=== PATIENT | female | born 1965 | race Two or more races ===

== ENCOUNTER 2022-03-30 14:09 | Emergency (ER) | payer OTHER ==
[~2022-03-30] VITALS: Ht 170.2 cm; Wt 129.5 kg
[2022-03-30 14:59] VITALS: BP 139/73
--- NOTE | 2022-03-30 15:32 | RAD ---
STUDY: US DPLX VENOUS EXTREMITY LOWER RT INDICATION: Right lower extremity cellulitis. TECHNIQUE: Color-flow and pulsed wave duplex ultrasound with compression of venous structures of the right lower extremity. COMPARISON: None Available FINDINGS: Duplex ultrasound with compression of the deep venous structures of the right lower extremity from th e common femoral vein through the popliteal vein is negative for DVT. The posterior tibial and peroneal veins are segmentally visualized and patent where seen. Normal veno us waveforms and augmentation are noted throughout. IMPRESSION: No deep venous thrombosis identified throughout the right lower extremity. Electronically signed by: BAMBI CASE MD (03/30/2022 3:30 PM) [facility]
--- NOTE | 2022-03-30 15:41 | RAD ---
Right shoulder 3 views: Reason for examination: Right shoulder pain. No acute fracture or dislocation is evident. There does appear to be some widening of the acromiohume ral joint with a slight inferior subluxation of the right humeral head from the glenoid. There is candi e spurring at the AC joint and along the undersurface of the acromium. IMPRESSION: Degenerative change present at the AC joint and on the undersurface of the acromion. Slightly inferior position of the humeral head at the glenoid with some widening at the acromiohumera l joint space. Electronically signed by: Christi Aldana MD (03/30/2022 3:39 PM) [facility]
[2022-03-30] MEDS ORDERED: CLINDAMYCIN HCL 150 MG CAPSULE. PO ONE (16:15)
[2022-03-30] MEDS ORDERED: DIPHTH,PERTUSS(ACELL),TET TOX 0.5 ML DISP.SYRIN. VAX IM ONE (16:15)
--- NOTE | 2022-03-30 16:18 | PHYS DOC ---
Past Medical History Additional Past Medical Histor: diabetes Past Surgical History: Other Additional Past Surgical Histo: hernia General Adult EDM: Chief Complaint: UPPER EXTREMITY PAIN HPI: HPI: Patient is a 56 year old female with history of diabetes type 2, high cholesterol, who presents the ED today complaining of right lower extremity redness, swelling, symptoms of been going on for 2 weeks. Patient denies any trauma. Denies any fever. Patient is also complaining of 6 out of 10 right shoulder pain only on range of motion worse on raising the right shoulder, symptoms intermittently for 2 weeks. Patient describes the pain as sharp. Denies anything relieving the pain though she states she has not tried OTC medications. Denies any chest pain, shortness of breath. Review of Systems: Review of Systems: Constitutional: Denies fever or chills. [] Eyes: Denies change in visual acuity. [] HENT: Denies nasal congestion or sore throat. [] Respiratory: Denies cough or shortness of breath. [] Cardiovascular: Denies chest pain or edema. [] GI: Denies abdominal pain, nausea, vomiting, bloody stools or diarrhea. [] : Denies dysuria. [] Musculoskeletal: Reports right shoulder pain, reports right lower extremity swelling and redness Integument: Denies rash. [] Neurologic: Denies headache, focal weakness or sensory changes. [] Psychiatric: Denies depression or anxiety. [] Heart Score: C/O Chest Pain: N/A Risk Factors: Risk Factors: DM, Current or recent (<one month) smoker, HTN, HLP, family history of CAD, obesity. Risk Scores: Score 0 - 3: 2.5% MACE over next 6 weeks - Discharge Home Score 4 - 6: 20.3% MACE over next 6 weeks - Admit for Clinical Observation Score 7 - 10: 72.7% MACE over next 6 weeks - Early Invasive Strategies Current Medications: Current Medications Medications (Trade) Dose Ordered Sig/Nuria Start Time Stop Time Status Last Admin Dose Admin Clindamycin HCl (Cleocin) 450 mg 1X ONCE 03/30/22 16:15 03/30/22 16:16 UNV Diphtheria/ Tetanus/Acell Pertussis (Boostrix) 0.5 ml ONCE ONCE 03/30/22 16:15 03/30/22 16:16 UNV Physical Exam: PE: Constitutional: Well developed, well nourished, no acute distress, non-toxic ap pearance. [] HENT: Normocephalic, atraumatic, bilateral external ears normal, oropharynx moist, no oral exudates, nose normal. [] Eyes: PERRLA, EOMI, conjunctiva normal, no discharge. [] Neck: Normal range of motion, no tenderness, supple, no stridor. [] Cardiovascular:Heart rate regular rhythm, no murmur [] Lungs & Thorax: Bilateral breath sounds clear to auscultation [] Abdomen: Bowel sounds normal, soft, no tenderness, no masses, no pulsatile masses. [] Skin: Warm, dry, no erythema, no rash. [] Back: No tenderness, no CVA tenderness. [] Extremities: Right lower extremity with +1 edema, cellulitis noted mid muñoz to above the ankle. Warmth over cellulitis region. No cellulitis noted on the posterior aspect of the right lower extremity. +2 right pedal pulse. Cap refill less than 2 seconds to right lower extremity. Negative Homans' sign to the right lower extremity. Right shoulder with no obvious deformity. Full passive as well as active range of motion to the right shoulder with no pain is elicited on raising the right shoulder/upper extremity. Adequate radial, medial, ulnar sensation to the right upper extremity. +2 right radial pulse. Cap refill less than 2 seconds of right lower extremity. Neurologic: Alert and oriented X 3, normal motor function, normal sensory function, no focal deficits noted. [] Psychologic: Affect normal, judgement normal, mood normal. [] Current Patient Data: Vital Signs: Vital Signs Date Time Temp Pulse Resp B/P (MAP) Pulse Ox O2 Delivery O2 Flow Rate FiO2 03/30/22 14:59 98.3 78 18 139/73 (95) 98 98.3 EKG: EKG: [] Radiology/Procedures: Radiology/Procedures: []PROCEDURE: SHOULDER 2+V RIGHT Right shoulder 3 views: Reason for examination: Right shoulder pain. No acute fracture or dislocation is evident. There does appear to be some widening of the acromiohumeral joint with a slight inferior subluxation of the right humeral head from the glenoid. There is some spurring at the AC joint and along the undersurface of the acromium. IMPRESSION: Degenerative change present at the AC joint and on the undersurface of the acromion. Slightly inferior position of the humeral head at the glenoid with some widening at the acromiohumeral joint space. Electronically signed by: Christi Davis MD (03/30/2022 3:39 PM) [facility] DICTATED and SIGNED BY: CHRISTI DAVIS MD DATE: 03/30/22 1536 PROCEDURE: VENOUS LOWER EXTREMITY RIGHT STUDY: US DPLX VENOUS EXTREMITY LOWER RT INDICATION: Right lower extremity cellulitis. TECHNIQUE: Color-flow and pulsed wave duplex ultrasound with compression of venous structures of the right lower extremity. COMPARISON: None Available FINDINGS: Duplex ultrasound with compression of the deep venous structures of the right lower extremity from the common femoral vein through the popliteal vein is negative for DVT. The posterior tibial and peroneal veins are segmentally visualized and patent where seen. Normal venous waveforms and augmentation are noted throughout. IMPRESSION: No deep venous thrombosis identified throughout the right lower extremity. Electronically signed by: BAMBI CASE MD (03/30/2022 3:30 PM) [facility] DICTATED and SIGNED BY: BAMBI CASE MD DATE: 03/30/22 1529 Course & Med Decision Making: Course & Med Decision Making Pertinent Labs and Imaging studies reviewed. (See chart for details) This is a 56-year-old female patient presenting to the ED today with complaints of right lower extremity swelling and redness, physical exam consistent with cellulitis. Venous Doppler of the right lower extremity was done to rule out DVT, venous Doppler is negative. Discharged on clindamycin. First dose given in the ED. Tetanus updated. Patient was also complaining of right shoulder pain for 2 weeks, right shoulder x-rays interpreted by radiologist degenerative change present at the AC joint and on the undersurface of the acromion. Slightly inferior position of the humeral head at the glenoid with some widening at the acromiohumeral joint space. Sling applied to the right upper extremity by the ED RN, neurovascular exam done by the RN is normal. Ice elevation encouraged. Follow-up with Ortho in the course of this week or next week Dragon Disclaimer: Dragshane Disclaimer: This electronic medical record was generated, in whole or in part, using a voice recognition dictation system. Departure Departure Impression: Primary Impression: Cellulitis of right lower limb Additional Impressions: DJD of right shoulder Qualified Codes: M19.011 - Primary osteoarthritis, right shoulder Right shoulder pain Qualified Codes: M25.511 - Pain in right shoulder Disposition: 01 HOME / SELF CARE / HOMELESS Condition: STABLE Referrals: GIOVANA WHITTAKER II, MD Please follow-up with your primary care doctor and the provided orthopedic doctor in the next 7 Patient Instructions: Cellulitis, [id number], Shoulder Pain, [id number] Additional Instructions: You have cellulitis to the right lower extremity. Take the prescribed antibiotics until completed. Your right shoulder x-rays were noted for arthritis in your shoulder and a little bit of shoulder widening. Take the prescribed medications as ordered. Follow-up with your doctor and the provided orthopedic doctor in 1 week. Ice and elevate right shoulder Scripts Cyclobenzaprine Hcl (CYCLOBENZAPRINE HCL) 10 Mg Tablet 1 TAB PO TID, #30 TAB Prov: REECE MCGOVERN APRN 03/30/22 Naproxen (NAPROXEN) 500 Mg Tablet 1 TAB PO BID for pain, #14 TAB 0 Refills Prov: REECE MCGOVERN APRN 03/30/22 Clindamycin Hcl (CLINDAMYCIN HCL) 300 Mg Capsule 1 CAP PO TID, #21 CAP Prov: REECE MCGOVERN APRN 03/30/22 REECE MCGOVERN APRN March 30, 2022 16:18
[2022-03-30] MEDS ORDERED: CYCL10TA19 PO (16:29)
[2022-03-30] MEDS ORDERED: NAPR-514 PO (16:29)
[2022-03-30] MEDS ORDERED: CLIN-94 PO (16:29)
== END 2022-03-30 17:35 | disposition home or self-care (01) ==
LOC: ER 14:09
DX: L03.115 Cellulitis of right lower limb (principal); M19.011 Primary osteoarthritis, right shoulder; E11.9 Type 2 diabetes mellitus without complications
CPT/HCPCS: 73030; 90471; 90715; 93971; 99284; A4565